=== PATIENT | male | born 1940 | race Caucasian/White ===

== ENCOUNTER 2016-12-08 14:39 | Emergency (ER) | payer MEDICARE ==
[2016-12-08 14:47] VITALS: BMI 23.7
[2016-12-08] MEDS ORDERED: SODIUM CHLORIDE 0.9% 10 ML FLUSH FLUSH PRN (15:07)
[2016-12-08] MEDS ORDERED: NS 1,000 ML IV ONE (15:07)
[2016-12-08] MEDS ORDERED: ONDANSETRON HCL 4 MG/2 ML VIAL IV ONE (15:08)
--- NOTE | 2016-12-08 15:18 | EDPRACDOC ---
- General Information Chief Complaint: Neuro Symptoms/Deficits Stated Complaint: POSSIBLE STROKE Time Seen by Provider: 12/08/16 15:01 Information Source: Patient Home Medications: Home Medications Amlodipine [Norvasc] 5 mg PO DAILY 04/06/13 Aspirin [Chewable Aspirin] 81 mg PO DAILY 04/06/13 Atorvastatin Calcium [Lipitor*] 10 mg PO DAILY 04/06/13 Amlodipine [Norvasc] 5 mg PO DAILY #10 tab 12/08/16 Hydrocodone Bit/Acetaminophen [Lortab 5/325] 1 tab PO Q6H PRN #14 tab 12/08/16 Allergies/Adverse Reactions: Allergies Allergy/AdvReac Type Severity Reaction Status Date / Time No Known Allergies Allergy Verified 12/08/16 14:42 - History of Present Illness Onset: 0900 this morning HPI: PAIN TO LEFT SIDE OF NECK AND HEAD SINCE THIS AM. NO FOCAL WEAKNESS TO ANY EXTREMITY. NO GENERALIZED PAGAN OR PAIN TO POST NECK WITH FLEXION. LATER TOLD ME HE RAN OUT OF BP MEDS A COUPLE OF WEEKS AGO. NO WEAKNESS; HELPING LIFT, AND HE IS VERY STRONG. NO COUGH OR RESP SXS. Pain Quality: Reports: Moderate Associated Signs and Symptoms: Reports: Nausea/Vomiting ED Past Medical History - History Reviewed Yes Nurses notes reviewed and agree except as marked - Patient Medical History Cardiac History: Reports: Hypertension, Hypercholesterolemia Systemic History: Denies: Cancer - Social Medical History Smoking Status: Never smoker EDM Review of Systems - Review of Systems ROS Negative Except as Marked: Yes All systems reviewed and were negative except as marked - Physical Exam Constitutional: Alert (Awake), No apparent distress Oriented to: Time, Person, Place Last recorded Vital Signs: Last Vital Signs Temp 97.5 F 12/08/16 14:42 Pulse 72 12/08/16 14:47 Resp 18 12/08/16 14:47 BP 194/94 H 12/08/16 14:47 Pulse Ox 97 12/08/16 14:47 Oxygen Pulse Oxygen Saturation 97 O2 Device Oxygen Flow Rate Fraction of Inspired Oxygen ( FIO2) - HEENT Head: Normal ( normocephalic) Eye Exam: Normal (PERRL, EOMI, Sclera white) Oropharynx: Normal (Pharynx:Moist without exudate,Gums-no swelling) ENT EAC: Normal TMJ: Normal Nose: No Symptoms Reported (septum midline) Neck: Normal (FROM, trachea at midline) - Respiratory/Cardiovascular Respiratory: Normal - CTA (BBS clear to auscultation without adventitious sounds ) Cardiovascular: Normal (RRR without murmur, gallop or rub) - GI Auscultation: Normal (NABS) Palpation: Normal (Soft,No rebound or guarding, non distended) Tenderness: Non tender Hayes's Sign: Negative - Musculoskeletal Back: Normal (Non-Tender) Extremities: Normal (Normal tone, Pulses 2+ No cyanosis or edema, FROM) - Integumentary Skin: Normal, Warm, Dry Lymphatics: Normal (no adenopathy) - Neurologic Memory Impaired: Normal Motor Function: Normal (Normal tone, Pulses 2+ No cyanosis or edema, FROM) Cranial Nerve: Normal (CN II-X11 intact sensation, strength 5/5) Cerebellar: Normal Mood Description: Normal Perception: Normal - Results 12/08/16 15:00 12/08/16 15:00 - EKG EKG #1 [place]: Normal Rhythm: NSR Block: None Hypertrophy: None ST: Normal - Additional Information FEELING BETTER AFTER NAUSEA MEDS. REPEAT NEURO AND NECK EXAM NL. PAIN IS ON LEFT SIDE OF NECK AND FACE. Decision Time to Discharge: 19:09 - Departure Yes I personally saw and evaluated the patient. Disposition: Home Condition: Good Final Diagnosis: PAGAN, HTN, MEDICATION NON COMPLIANCE Instructions: Migraine Headache (ED) Education/Counseling Given To: Patient, Family Member Education/Counseling Given Regarding: Diagnosis, Treatment Referrals: Yadira Aguirre MD [Primary Care Provider] - One Week Prescriptions: Amlodipine [Norvasc] 5 mg PO DAILY #10 tab Hydrocodone Bit/Acetaminophen [Lortab 5/325] 1 tab PO Q6H PRN #14 tab PRN Reason: Pain Additional Instructions: NEEDS OUTPATIENT CT OF CHEST; CONTACT PMD TO SET UP ERIC. DR. YADIRA AGUIRRE
[2016-12-08 15:26] LABS: AUTOMATED BASOPHIL 0.5 % (0-2); AUTOMATED EOSINOPHIL 0.6 % (0-5); AUTOMATED LYMPH 13.5 % (17-44); AUTOMATED MONOCYTE 3.4 % (3-10); MPV 8.5 fL (7.4-10.4)
--- NOTE | 2016-12-08 15:31 | DIRPT ---
CLINICAL DATA: Chest pain, severe LEFT neck pain to top of head beginning this morning, nausea, vomiting, diarrhea EXAM: PORTABLE CHEST 1 VIEW COMPARISON: Portable exam 1513 hours compared to 04/09/2013 FINDINGS: Normal heart size, mediastinal contours, and pulmonary vascularity. Atherosclerotic calcification aorta. Questionable RIGHT infrahilar density versus artifact. Remaining lungs clear. No pleural effusion or pneumothorax. Bones unremarkable. IMPRESSION: Questionable RIGHT infrahilar density versus artifact; followup upright PA and lateral chest radiographs recommended to exclude mass lesion and infiltrate. Electronically Signed By: Gonzalo Sheridan M.D. On: 12/08/2016 15:28
[2016-12-08 15:41] LABS: BLOOD UREA NITROGEN 16 MG/DL (9-20); CALCIUM 9.3 MG/DL (8.4-10.2); CALCULATED OSMOLALITY 271 MOs/Kg (270-290); CHLORIDE 102 mEq/L (98-107); GLUCOSE 109 MG/DL (70-99); SODIUM LEVEL 140 mEq/L (137-146); TOTAL PROTEIN 7.4 G/DL (6.3-8.2)
[2016-12-08 15:51] LABS: PARTIAL THROMB. TIME 23.1 SEC (22-35); PT-INR 1.1
--- NOTE | 2016-12-08 16:46 | DIRPT ---
CLINICAL DATA: 76-year-old male with headache and vomiting for 1 day. Initial encounter. EXAM: MRI HEAD WITHOUT AND WITH CONTRAST MRA NECK WITHOUT AND WITH CONTRAST TECHNIQUE: Multiplanar, multiecho pulse sequences of the brain and surrounding structures were obtained without and with intravenous contrast. Angiographic images of the neck were obtained using MRA technique without and with contrast. CONTRAST: 16 mL MultiHance COMPARISON: [facility] brain MRI 04/09/2013. FINDINGS: MRI HEAD FINDINGS Major intracranial vascular flow voids are stable. No restricted diffusion to suggest acute infarction. No midline shift, mass effect, evidence of mass lesion, ventriculomegaly, extra-axial collection or acute intracranial hemorrhage. Cervicomedullary junction and pituitary are within normal limits. Negative visualized cervical spine. Patchy and confluent nonspecific cerebral white matter T2 and FLAIR hyperintensity has progressed since 2012. Cerebral volume is stable and within normal limits for age. No cortical encephalomalacia or chronic cerebral blood products. Deep crockett matter nuclei, brainstem, and cerebellum remain within normal limits for age. No abnormal enhancement identified ; developmental venous anomaly in the left parietal lobe (normal anatomic variant series 26, image 17). Visible internal auditory structures appear normal. Mastoids are clear. Postoperative changes to the paranasal sinuses. The right sphenoid sinus is opacified. Other paranasal sinuses are clear. Negative orbit and scalp soft tissues. Normal bone marrow signal. MRA NECK FINDINGS Precontrast [id number] images reveal antegrade flow in both cervical carotid and vertebral arteries. There is irregularity at the right carotid bifurcation whereas the left bifurcation appears within normal limits. The right vertebral artery appears mildly dominant. Post-contrast MRA images reveal a bovine arch configuration plus separate origin of the left vertebral artery directly off the arch (overall 3 vessel normal variant arch). No great vessel origin stenosis. Mildly tortuous proximal right CCA. The right carotid bifurcation appears widely patent although there is focal filling defect at the posterior right ICA origin likely corresponding to atherosclerosis (series 102, image 1). No stenosis results. Negative cervical right ICA otherwise. Mildly tortuous proximal left CCA. Widely patent left carotid bifurcation. Mild irregularity in the posterior distal left ICA bulb. No cervical left ICA stenosis. No proximal right subclavian artery stenosis. Normal right vertebral artery origin. The right vertebral artery appears mildly dominant throughout. No right vertebral artery stenosis. Patent vertebrobasilar junction. Negative visible basilar artery. The left vertebral artery arises directly from the arch. There could be up to moderate left vertebral artery origin stenosis. Otherwise negative left vertebral artery to the vertebrobasilar junction. Incidental type right COMPENSATION ADJUSTER origin. IMPRESSION: 1. No acute intracranial abnormality. 2. Progressed and moderate but nonspecific cerebral white matter signal changes, most commonly due to chronic small vessel disease. 3. Right sphenoid sinusitis. 4. Mild for age carotid atherosclerosis in the neck with no stenosis. 5. The left vertebral artery arises directly from the aortic arch, with up to moderate stenosis at its origin. 6. Negative right vertebral artery. Electronically Signed By: Ravindra Rosales M.D. On: 12/08/2016 16:43
[2016-12-08] MEDS ORDERED: HYDROmorphone 1 MG INJECTION IV ONE (17:00)
[2016-12-08] MEDS ORDERED: PROMETHAZINE 25 MG/ML VIAL IV ONE (17:00)
[2016-12-08] MEDS ORDERED: KETOROLAC TROMETH 30 MG/ML VIAL IV ONE (18:24)
--- NOTE | 2016-12-08 19:04 | DIRPT ---
CLINICAL DATA: Cough and shortness of breath. EXAM: CHEST 2 VIEW COMPARISON: 12/08/2016. FINDINGS: The cardiac silhouette remains borderline enlarged. Clear lungs with normal vascularity. Unremarkable bones. IMPRESSION: No acute abnormality. Electronically Signed By: Garrison Brewster M.D. On: 12/08/2016 19:02
[2016-12-08 20:05] VITALS: BP 176/79; PULSE 67; TEMP 97.9
== END 2016-12-08 19:50 | disposition home or self-care (01) ==
LOC: ED 14:39
DX: I10 Essential (primary) hypertension (principal); R51 Headache; Z91.14 Patient's other noncompliance with medication regimen; M54.2 Cervicalgia
CPT/HCPCS: 36415; 70549; 70553; 71010; 71020; 80053; 84484; 85025; 85610; 85730; 93005; 96361; 96374; 96375; 99285; A9577; J1170; J1885; J2405; J2550